=== PATIENT | male | born 1950 | race Caucasian/White ===

== ENCOUNTER 2019-06-24 14:26 | Outpatient (CLI) | payer MEDICARE ==
--- NOTE | 2019-06-24 14:46 | RAD ---
XR Chest Pa Lat STANDARD HISTORY: Dyspnea COMPARISON: None FINDINGS: The heart size is normal. The lungs are well expanded without focal areas of consolidation, pneumothorax or pleural effusions. IMPRESSION: No radiographic evidence of acute cardiopulmonary process.
== END 2019-06-24 14:27 | disposition home or self-care (01) ==
LOC: RAD 14:26
PROVIDERS: ATTEND Internal Medicine Pulmonary Disease
DX: R06.00 Dyspnea, unspecified (principal)
CPT/HCPCS: 71046

== ENCOUNTER 2019-08-05 20:30 | Outpatient (CLI) | payer MEDICARE | END 2019-08-05 20:31 | disposition home or self-care (01) | LOC: SLEEPLAB 20:30 | PROVIDERS: ATTEND Internal Medicine Pulmonary Disease | DX: G47.33 Obstructive sleep apnea (adult) (pediatric) (principal); I10 Essential (primary) hypertension; F32.9 Major depressive disorder, single episode, unspecified | CPT/HCPCS: 95810 ==

== ENCOUNTER 2019-08-11 20:30 | Outpatient (CLI) | payer MEDICARE | END 2019-08-11 20:31 | disposition home or self-care (01) | LOC: SLEEPLAB 20:30 | PROVIDERS: ATTEND Internal Medicine Pulmonary Disease | DX: G47.33 Obstructive sleep apnea (adult) (pediatric) (principal) | CPT/HCPCS: 95811 ==